=== PATIENT | male | born 1975 | race Caucasian/White ===

== ENCOUNTER 2023-08-25 10:09 | Outpatient (CLI) | payer BC | END 2023-08-25 10:10 | disposition home or self-care (01) | LOC: SCSMRI 10:09 | PROVIDERS: ATTEND Neurological Surgery | DX: M54.16 Radiculopathy, lumbar region (principal); M79.604 Pain in right leg; S05.42XA Penetrating wound of orbit with or without foreign body, left eye, initial encounter | CPT/HCPCS: 70210 ==